=== PATIENT | male | born 1995 | race Two or more races ===

== ENCOUNTER 2019-12-16 00:56 | Emergency (ER) | payer BC ==
[2019-12-16] MEDS ORDERED: Cephalexin 500 MG Cap PO ONE (01:21)
[2019-12-16] MEDS ORDERED: Lidocaine 2% Viscous Solution 15 ML Cup PO ONE (01:22)
[2019-12-16] MEDS ORDERED: Benzocaine 20% Topical Spray UD MUCMEM ONE (01:22)
--- NOTE | 2019-12-16 01:22 | EDM.PDOC ---
ED HPI GENERAL MEDICAL PROBLEM - General Chief Complaint: ENT Problem Stated Complaint: POSSIBLE TOOTH INFECTION Time Seen by Provider: 12/16/19 01:15 Source of Information: Reports: Patient History Limitations: Reports: No Limitations - History of Present Illness INITIAL COMMENTS - FREE TEXT/NARRATIVE: The patient has infection to the right upper tooth approximately #4. He has had the infection for 3 weeks and unable to get into see a dentist. Onset: Gradual Duration: Getting Worse Location: Reports: Other (Tooth #4) Quality: Reports: Ache Severity: Moderate Improves with: Reports: None Worsens with: Reports: None Associated Symptoms: Reports: No Other Symptoms Upper Oral/Mouth Pain Score (Numeric/FACES): 10 - Related Data Allergies Allergy/AdvReac Type Severity Reaction Status Date / Time No Known Allergies Allergy Verified 12/16/19 01:20 Home Meds: Home Meds Ibuprofen [Motrin] 600 mg PO Q8H PRN #30 tab 12/16/19 [Rx] cephALEXin [Keflex] 500 mg PO Q8HR #20 capsule 12/16/19 [Rx] ED ROS ENT - Review of Systems Review Of Systems: See Below Constitutional: Reports: No Symptoms HEENT: Reports: Other (2. For tooth is infected gum has swelling) Respiratory: Reports: No Symptoms Endocrine: Reports: No Symptoms GI/Abdominal: Reports: No Symptoms : Reports: No Symptoms Musculoskeletal: Reports: No Symptoms Skin: Reports: No Symptoms Neurological: Reports: No Symptoms Psychiatric: Reports: No Symptoms Hematologic/Lymphatic: Reports: No Symptoms Immunologic: Reports: No Symptoms ED EXAM, ENT - Physical Exam Exam: See Below Exam Limited By: No Limitations General Appearance: Alert, WD/WN, Mild Distress Eye Exam: Bilateral Eye: Normal Fundi, Normal Inspection, PERRL Ears: Normal External Exam, Normal Canal, Hearing Grossly Normal, Normal TMs Nose: Normal Inspection, Normal Mucousa, No Blood Mouth/Throat: Dental Pain, Gum Swelling, Other (Teeth appeared to be decayed tooth #4). No: Normal Teeth Head: Atraumatic Neck: Normal Inspection, Supple, Non-Tender, Full Range of Motion Respiratory/Chest: No Respiratory Distress, Lungs Clear, Normal Breath Sounds, No Accessory Muscle Use, Chest Non-Tender (Male) Exam: Deferred Rectal (Males) Exam: Deferred Back: Normal Inspection, Full Range of Motion Neurological: Alert, Oriented, CN II-XII Intact, Normal Cognition, Normal Gait, Normal Reflexes, No Motor/Sensory Deficits Course - Vital Signs Last Recorded V/S: Last Vital Signs Temp 97.6 F 12/16/19 01:17 Pulse 88 12/16/19 01:17 Resp 18 12/16/19 01:17 BP 124/53 L 12/16/19 01:17 Pulse Ox 97 12/16/19 01:17 - Orders/Labs/Meds Meds: Medications Discontinued Medications Generic Name Dose Route Start Last Admin Trade Name Roberto PRN Reason Stop Dose Admin Benzocaine 2 each 12/16/19 01:22 12/16/19 01:28 Hurricaine One 20% MUCMEM 12/16/19 01:23 2 each ONETIME ONE Administration Cephalexin 500 mg 12/16/19 01:21 12/16/19 01:28 Keflex PO 12/16/19 01:22 500 mg ONETIME ONE Administration Lidocaine HCl 15 ml 12/16/19 01:22 12/16/19 01:28 Xylocaine 2% Viscous PO 12/16/19 01:23 15 ml ONETIME ONE Administration Departure - Departure Time of Disposition: 01:33 Disposition: Home, Self-Care 01 Condition: Good Clinical Impression: Dental caries - Discharge Information Referrals: PCP,None [Primary Care Provider] - Forms: ED Department Discharge Additional Instructions: Patient to follow-up with local dentist. This is a dental problem. Take the antibiotics as prescribed Sepsis Event Note - Focused Exam Vital Signs: Vital Signs Temp Pulse Resp BP Pulse Ox 12/16/19 01:17 97.6 F 88 18 124/53 L 97 Date Exam was Performed: 12/16/19 Time Exam was Performed: 01:33
== END 2019-12-16 01:46 | disposition home or self-care (01) ==
LOC: MW.ED 00:56
DX: K02.9 Dental caries, unspecified (principal)
CPT/HCPCS: 99282; A9270

== ENCOUNTER 2020-08-25 20:55 | Emergency (ER) | payer BC ==
--- NOTE | 2020-08-25 21:14 | EDM.PDOC ---
ED HPI GENERAL MEDICAL PROBLEM - General Chief Complaint: Upper Extremity Injury/Pain Stated Complaint: POSSIBLE SEPERATED RT AC JOINT Time Seen by Provider: 08/25/20 21:12 Source of Information: Reports: Patient History Limitations: Reports: No Limitations - History of Present Illness INITIAL COMMENTS - FREE TEXT/NARRATIVE: Patient is a 25-year-old male who presents today for right shoulder pain. Patient states that shoulder pain started he woke up he feels that he slept on it wrong. This been about 2 days ago. Patient states he placed his shoulder in a sling that he purchased from [employer]. Patient denies any pain elbow wrist numbness tingling to the arm. Patient no other complaints. Right Shoulder Pain Score (Numeric/FACES): 7 - Related Data Allergies Allergy/AdvReac Type Severity Reaction Status Date / Time No Known Allergies Allergy Verified 08/25/20 21:07 Home Meds: Home Meds Ibuprofen [Motrin] 600 mg PO Q8H PRN #30 tab 12/16/19 [Rx] Amoxicillin 2 tab BID 08/25/20 [History] Clarithromycin 500 mg PO BID 08/25/20 [History] Lansoprazole 30 mg PO BID 08/25/20 [History] metroNIDAZOLE [Flagyl] 500 mg PO BID 08/25/20 [History] Past Medical History HEENT History: Reports: None Cardiovascular History: Reports: None Respiratory History: Reports: None Gastrointestinal History: Reports: None Genitourinary History: Reports: None Musculoskeletal History: Reports: None Neurological History: Reports: None Psychiatric History: Reports: None Endocrine/Metabolic History: Reports: None Hematologic History: Reports: None Immunologic History: Reports: None Oncologic (Cancer) History: Reports: None Dermatologic History: Reports: None - Infectious Disease History Infectious Disease History: Reports: None - Past Surgical History Head Surgeries/Procedures: Reports: None Male Surgical History: Reports: None Social & Family History - Caffeine Use Caffeine Use: Reports: Coffee, Other Review of Systems - Review of Systems Review Of Systems: Comprehensive ROS is negative, except as noted in HPI. ED EXAM, GENERAL - Physical Exam Exam: See Below Exam Limited By: No Limitations General Appearance: Alert, WD/WN Respiratory/Chest: No Respiratory Distress Cardiovascular: Normal Peripheral Pulses Peripheral Pulses: 2+: Radial (L), Radial (R) Extremities: Normal Inspection, Normal Range of Motion, Non-Tender Course - Vital Signs Last Recorded V/S: Last Vital Signs Temp 99.8 F 08/25/20 21:04 Pulse 90 08/25/20 21:04 Resp 18 08/25/20 21:04 BP 133/84 08/25/20 21:04 Pulse Ox 99 08/25/20 21:04 Departure - Departure Time of Disposition: 23:28 Disposition: Home, Self-Care 01 Condition: Good Clinical Impression: Shoulder sprain, Acromioclavicular joint separation, type 1 - Discharge Information *PRESCRIPTION DRUG MONITORING PROGRAM REVIEWED*: Not Applicable *COPY OF PRESCRIPTION DRUG MONITORING REPORT IN PATIENT BANDAR: Not Applicable Instructions: Shoulder Pain, [id number], Acromioclavicular Separation Referrals: Jocelyn Camargo NP [Primary Care Provider] - Forms: ED Department Discharge Additional Instructions: The following information is given to patients seen in the emergency department who are being discharged to home. This information is to outline your options for follow-up care. We provide all patients seen in our emergency department with a follow-up referral. The need for follow-up, as well as the timing and circumstances, are variable depending upon the specifics of your emergency department visit. If you don't have a primary care physician on staff, we will provide you with a referral. We always advise you to contact your personal physician following an emergency department visit to inform them of the circumstance of the visit and for follow-up with them and/or the need for any referrals to a consulting specialist. The emergency department will also refer you to a specialist when appropriate. This referral assures that you have the opportunity for follow-up care with a specialist. All of these measure are taken in an effort to provide you with optimal care, which includes your follow-up. Under all circumstances we always encourage you to contact your private physician who remains a resource for coordinating your care. When calling for follow-up care, please make the office aware that this follow-up is from your recent emergency room visit. If for any reason you are refused follow-up, please contact the [facility] Emergency Department at and asked to speak to the emergency department charge nurse. Please follow up with your primary care physician. If you do not have a primary care physician, see below: [facility] [address], [address] [place] [address] Please follow-up with your primary care physician. We also gave you some information for the [employer] if your shoulder continues to bother you. X-ray shows this possibly a sprain with some AC joint separation. Please use the sling and continue to range the shoulder as needed take Motrin Tylenol for the pain. Sepsis Event Note (ED) - Evaluation Sepsis Screening Result: No Definite Risk - Focused Exam Vital Signs: Vital Signs Temp Pulse Resp BP Pulse Ox 08/25/20 21:04 99.8 F 90 18 133/84 99 - Assessment/Plan Assessment:: Patient is a 25-year-old male who presents today for right shoulder pain. Patient states that he slept on it funny 2 days ago and since then has had pain in his shoulder. Patient is at his arm in a sling since that time. Will obtain x-ray and reassess.
--- NOTE | 2020-08-25 23:22 | CR ---
INDICATION: Pain. TECHNIQUE: Three views of the right shoulder. COMPARISON: None. IMPRESSION: No glenohumeral joint subluxation or dislocation. There is minor widening of superior aspect of the acromioclavicular joint, with a small ossific fragment seen along the superior margin of the acromion adjacent to the acromioclavicular joint. This could be related to a low-grade AC joint separation with an associated avulsion type fracture at the capsular insertion. Dictated by Abhinav King MD @ 08/25/2020 11:20:11 PM Dictated by: Abhinav King MD @ 08/25/2020 23:20:20 (Electronically Signed)
== END 2020-08-25 23:45 | disposition home or self-care (01) ==
LOC: MW.ED 20:55
DX: S43.401A Unspecified sprain of right shoulder joint, initial encounter (principal); S43.101A Unspecified dislocation of right acromioclavicular joint, initial encounter; Z79.899 Other long term (current) drug therapy; X58.XXXA Exposure to other specified factors, initial encounter
CPT/HCPCS: 73030-26-RT; 73030-RT; 99283